=== PATIENT | female | born 1955 | race Caucasian/White ===

== ENCOUNTER → 2023-07-14 08:24 | Outpatient (REF) | payer OTHER, SELFPAY | LOC: HWRAD 08:24 | PROVIDERS: ATTENDING PHYSICIAN Family Medicine | DX: Z12.31 Encounter for screening mammogram for malignant neoplasm of breast (principal); N95.9 Unspecified menopausal and perimenopausal disorder | CPT/HCPCS: 77063; 77067; 77080 ==

== ENCOUNTER 2023-07-18 06:26 | Emergency (ER) | payer OTHER, SELFPAY ==
[2023-07-18 06:29] VITALS: BP 161/85
[2023-07-18 06:44] VITALS: BMI 24.8
--- NOTE | 2023-07-18 06:44 | ED.GENMED ---
History of Present Illness
General
Chief Complaint: Oral/Mouth Problem
Time Seen by Provider: 07/18/23 06:36
Travel History
Have you had any contact with someone who has COVID-19?: No
Do you have any symptoms of coronavirus? Fever > 100 degrees, chills, cough, shortness of breath, sore throat, loss of taste or smell, muscle aches, or headache?: No
History of Present Illness
History of Present Illness:
HPI: The patient presents due to swelling at the tongue. She reports no trouble breathing. She has had similar but less severe episodes in the past. Currently upon arrival here, she reports significant spontaneous improvement. She has an appoint
to see an team lead this coming August. The patient reports no EVA inhibitor use. She did not eat anything unusual last evening. She cut out certain fruits from her diet.
EXAM:
GENERAL: Well appearing in no distress
HEENT: Moist oral mucosa, there is left-sided tongue swelling consistent with angioedema, posterior oropharynx is widely patent
CARDIOVASCULAR: No murmurs, normal heart rate, regular rhythm, No chest wall tenderness
PULMONARY: No respiratory distress, breath sounds are clear and equal, there is no wheeze
ABDOMEN: Soft with no peritoneal signs, no tenderness
NEUROLOGIC: Excellent strength all extremities, no coordination deficits
PSYCHIATRIC: Appropriate mental status, normal insight and judgement
EXTREMITIES: Nontender, no edema, moves all extremities equally
SKIN: No rash, no lesions
TIME OF INITIAL ENCOUNTER: 6:45 AM
NUMBER AND COMPLEXITY OF PROBLEMS ADDRESSED AT THE ENCOUNTER
� Chronic conditions affecting care: Has had hysterectomy, IBS, GERD
� Acute Exacerbation and/or Progression of Chronic Illness: This is an acute but recurring problem
� Differential Diagnosis includes: Idiopathic angioedema, hereditary angioedema, allergic reaction
AMOUNT AND/OR COMPLEXITY OF DATA TO BE REVIEWED AND ANALYZED
� I performed an independent evaluation of and my interpretation is:
EKG:
CT:
X-rays:
Laboratory Studies: White count and hemoglobin are normal, chemistries unremarkable, C1 esterase inhibitor function is pending
Other:
� Review of other/old records: I reviewed records, the patient had endoscopy in 2020
� Clinical information was obtained by an independent historian: I spoke to the at bedside
� Prescriptions/Medications Considered but not given:
� Further testing considered but not performed:
RISK OF COMPLICATIONS AND/OR MORBIDITY OR MORTALITY OF PATIENT MANAGEMENT
� Social determinants of health affecting care: Lives at home
� Discussion with other providers:
� Escalation of care including admission/observation vs risk of discharge considered: The patient presents due to tongue swelling�physical exam is consistent with angioedema but there is no airway involvement. She already
reports significant improvement spontaneously. I have ordered Solu-Medrol, Pepcid, Benadryl. There is no stridor. I have also ordered a C1 esterase inhibitor activity level which is pending. On reassessment at 8:15 AM, the patient continues to
feel improved. She already has a prescription for steroids at home which she can use if symptoms persist. She is in no distress at time of discharge.
Phy Exam
Physical Exam
Physical Exam:
See HPI
Course
Orders/Labs/Results
Orders:
Orders
07/18/23 06:49
Diphenhydramine [Benadryl] 25 mg IV NOW STA
Famotidine [Pepcid] 20 mg IV NOW STA
MethylPREDNISolone PF [Solu-Medrol Pf] 125 mg IV NOW STA
07/18/23 07:21
Basic Metabolic Panel Urgent
C1 Esterase Inhibitor, Funct [S] Urgent
Complete Blood Count/With Diff Urgent
Abnormal Lab Results
07/18/23
07:21
MCH 32.3 H pg
(27.0-31.0)
Absolute Monos (auto) 0.8 H 10^3/uL
(0.1-0.6)
Monocytes % 9.9 H %
(1.7-9.3)
BUN 22 H mg/dl
(7-17)
Glucose 105 H mg/dl
(70-99)
07/18/23 07:21
07/18/23 07:21
Vital Signs
Initial and Last Documented VS:
Initial Vital Signs
Temp Pulse Resp BP Pulse Ox
98.9 F 76 16 161/85 98
07/18/23 06:29 07/18/23 06:29 07/18/23 06:29 07/18/23 06:29 07/18/23 06:29
Last Documented Vital Signs
Temp Pulse Resp BP Pulse Ox
98.9 F 76 16 161/85 100
07/18/23 06:29 07/18/23 06:29 07/18/23 06:29 07/18/23 06:29 07/18/23 06:44
*Critical Care Note
Total Time (30-74mins, 75-104mins- exclusive of procedures): Not Applicable
ED Attending Note
-
Portions of this chart may have been created with voice recognition software.� Occasional wrong word or��sound alike� substitutions may have occurred due to the inherent limitations of voice recognition software.
Discharge Plan
Departure
Referrals:
Toma Tillman, [Family Provider] -
Interventions
Interventions:
*Risk Screen - Suicide Last Done: 07/18/23 06:29
*General Assessment Last Done: 07/18/23 06:29
*Neglect/Abuse Screening Last Done: 07/18/23 06:29
ED- Fall Risk Assessment Last Done: 07/18/23 06:29
*ED COVID-19 Vaccine History Last Done: 07/18/23 06:29
Discharge Date and Time
Print Language: CYMRAES
[2023-07-18] MEDS: SOLU-MEDROL PF 125 MG IV (07:00)
[2023-07-18] MEDS: PEPCID 20 MG IV ×2 (07:00)
[2023-07-18] MEDS: BENADRYL 25 MG IV (07:01)
[2023-07-18 07:37] LABS: % Basophils 0.3 % (0-2); % Immature Granulocytes 0.3 % (0-0.5); % Lymphocytes 32.1 % (20.5-51.1); % Monocytes 9.9 % (1.7-9.3); % Neutrophils 55.4 % (42.2-75.2); Absolute Eosinophils 0.2 10^3/uL (0-0.7); Absolute Lymphocytes 2.5 10^3/uL (1.2-3.4); Absolute Monocytes 0.8 10^3/uL (0.1-0.6); Absolute Neutrophils 4.2 10^3/uL (1.4-6.5); Hematocrit 43.8 % (37.0-47.0); Hemoglobin 14.9 g/dL (12.0-16.0); Mean Corpuscular Hgb 32.3 pg (27.0-31.0); Mean Corpuscular Volume 94.8 fL (81.0-99.0); Mean Platelet Volume 8.4 fL (7.4-10.4); Nucleated Red Blood Cells % 0 %; Platelet Count 353 10^3/uL (130-400); Red Blood Cell Count 4.62 10^6/uL (4.20-5.40); Red Cell Dist. Width 12.6 % (11.5-14.5); White Blood Cell Count 7.6 10^3/uL (4.8-10.8)
[2023-07-18 07:49] LABS: Blood Urea Nitrogen 22 mg/dl (7-17); Calcium 9.8 mg/dl (8.4-10.2); Carbon Dioxide 27 mmol/L (22-30); Chloride 105 mmol/L (98-107); Estimated Creatinine Clearance 48 ml/min; Glucose 105 mg/dl (70-99); Potassium 4.4 mmol/L (3.5-5.1); Sodium 142 mmol/L (135-145); eGFR > 60.00
[2023-07-18 08:51] VITALS: BP 140/62
[2023-07-20 17:41] LABS: C1 Esterase Inhibitor, Func 115 % (>=41)
== END 2023-07-18 08:50 | disposition home or self-care (01) ==
LOC: EMR 06:26
PROVIDERS: EMERGENCY PHYSICIAN Emergency Medicine; FAMILY PHYSICIAN Family Medicine
DX: T78.3XXA Angioneurotic edema, initial encounter (principal); X58.XXXA Exposure to other specified factors, initial encounter
CPT/HCPCS: 99283; 80048; 85025; 86161

== ENCOUNTER → 2024-07-15 08:40 | Outpatient (REF) | payer OTHER, SELFPAY | LOC: HWWDC 08:40 | PROVIDERS: ATTENDING PHYSICIAN Family Medicine | DX: Z12.31 Encounter for screening mammogram for malignant neoplasm of breast (principal); E78.2 Mixed hyperlipidemia; K21.9 Gastro-esophageal reflux disease without esophagitis | CPT/HCPCS: 77063; 77067; 93005 ==

== ENCOUNTER → 2024-09-06 09:30 | Outpatient (REF) | payer OTHER, SELFPAY ==
[2024-09-06 12:15] LABS: Hematocrit 41.2 % (37.0-47.0); Hemoglobin 13.8 g/dL (12.0-16.0); Mean Corp Hgb Conc. 33.5 g/dL (33.0-37.0); Mean Corpuscular Volume 94.3 fL (81.0-99.0); Nucleated Red Blood Cells % 0 %; Platelet Count 304 10^3/uL (130-400); Red Cell Dist. Width 12.6 % (11.5-14.5)
[2024-09-06 14:04] LABS: ALT (SGPT) 39 U/L (0-35); AST (SGOT) 29 U/L (14-36); Albumin 4.5 g/dl (3.5-5.0); Alkaline Phosphatase 92 U/L (38-126); Blood Urea Nitrogen 21 mg/dl (7-17); Calcium 9.5 mg/dl (8.4-10.2); Carbon Dioxide 27 mmol/L (22-30); Chloride 107 mmol/L (98-107); Glucose 111 mg/dl (70-99); HDL Cholesterol 45 mg/dl; LDL Cholesterol, Calculated 75 mg/dl; Potassium 4.1 mmol/L (3.5-5.1); Sodium 140 mmol/L (135-145); Total Protein 7.1 g/dl (6.3-8.2); Very Low Density Lipoprotein 26 mg/dl (0-30); eGFR > 60.00
[2024-09-06 14:15] LABS: Vitamin D, 25-OH*** 40.4 ng/mL (30-80)
[2024-09-06 14:29] LABS: TSH 1.81 uIU/ml (0.47-4.68)
[2024-09-07 08:40] LABS: Glycohemoglobin (HgbA1c) 5.5 % (4.0-5.6)
== END ==
LOC: HWLAB 09:30
PROVIDERS: ATTENDING PHYSICIAN Family Medicine
DX: K51.20 Ulcerative (chronic) proctitis without complications (principal); K21.9 Gastro-esophageal reflux disease without esophagitis; E78.2 Mixed hyperlipidemia; M85.89 Other specified disorders of bone density and structure, multiple sites; T78.3XXD Angioneurotic edema, subsequent encounter
CPT/HCPCS: 36415; 80053; 80061; 82306; 83036; 84443; 85025

== ENCOUNTER → 2024-11-10 08:59 | Outpatient (REF) | payer OTHER, SELFPAY ==
[2024-11-10 12:34] LABS: Hematocrit 42.9 % (37.0-47.0); Hemoglobin 14.2 g/dL (12.0-16.0); Mean Corp Hgb Conc. 33.1 g/dL (33.0-37.0); Mean Corpuscular Volume 93.7 fL (81.0-99.0); Nucleated Red Blood Cells % 0 %; Platelet Count 349 10^3/uL (130-400); Red Cell Dist. Width 12.7 % (11.5-14.5)
[2024-11-10 13:11] LABS: ALT (SGPT) 62 U/L (0-35); AST (SGOT) 48 U/L (14-36); Albumin 4.6 g/dl (3.5-5.0); Alkaline Phosphatase 101 U/L (38-126); Blood Urea Nitrogen 18 mg/dl (7-17); Calcium 9.5 mg/dl (8.4-10.2); Carbon Dioxide 27 mmol/L (22-30); Chloride 102 mmol/L (98-107); Glucose 103 mg/dl (70-99); Potassium 4.4 mmol/L (3.5-5.1); Sodium 137 mmol/L (135-145); Total Protein 7.5 g/dl (6.3-8.2); eGFR > 60.00
== END ==
LOC: HWLAB 08:59
PROVIDERS: ATTENDING PHYSICIAN Internal Medicine Hematology & Oncology
DX: D47.2 Monoclonal gammopathy (principal)
CPT/HCPCS: 36415; 80053; 82232; 82784; 83521; 84155; 84165; 85025; 86334

== ENCOUNTER 2024-12-14 06:19 | Day surgery (SDC) | payer OTHER, SELFPAY | END 2024-12-14 14:31 | disposition home or self-care (01) | LOC: GI 06:19 | PROVIDERS: ATTENDING PHYSICIAN Internal Medicine Gastroenterology | DX: Z12.11 Encounter for screening for malignant neoplasm of colon (principal); K64.8 Other hemorrhoids; K57.30 Diverticulosis of large intestine without perforation or abscess without bleeding; Z86.0100 Personal history of colon polyps, unspecified | CPT/HCPCS: 45380; 88305 ==